=== PATIENT | male | born 1970 | race Hispanic/Latino ===

== ENCOUNTER 2022-03-09 00:31 | Emergency (ER) | payer OTHER ==
--- OUTSIDE RECORDS SUMMARY | 2022-03-09 00:45 | XMS REPORT | Continuity of Care Document ---
:1970 Author Organization [facility] t Address [address] [place] [address] Care Team Providers Name Role Phone PCP, DOES NOT HAVE A Primary Care Physician Unavailable ALLEN Attending Clinician Unavailable Allen DO Attending Clinician Jerson FAIR, S Attending Clinician ALLEN Admitting Clinician Unavailable Payers Payer Name Policy Type Policy Number Effective Date Expiration Date [facility] MEDICAID ALIEN PENDING 2022 PENDING 00:00:00 Problems Condition Condition Condition Status Onset Resolution Last Treating Co mments Source Name Details Category Date Date Treatment Clinician Date No known No known Disease Unive rs active active ity of problems problems [facility] Allergies, Adverse Reactions, Alerts Allergy Allergy Status Severity Reaction(s) Onset Inactive Treating Comm ents Source Name Type Date Date Clinician Penicill Propensi Active Other - See Reports Univers ins ty to comments 2-25 that it ity of adverse 00:00: makes him [place] reaction 00 go Medical unconscio [facility], and white comes out of his mouth per patient. PENICILL Drug Active Other-Cmnt Univ ers INS Class 2-25 ity of 00:00: [address] NO KNOWN Drug Active Univers ALLERGIE Class ity of S [facility] Social History Social Habit Start Date Stop Date Quantity Comments Source Exposure to Not sure [facility] SARS-CoV-2 (event) Medica l Branch Sex Assigned At [birth year] [facility] [place] [facility] Medical Branch Smoking Status Start Date Stop Date Source Unknown if ever smoked Universit y [facility] Medications Ordered Filled Start Stop Current Ordering Indication Dosage Frequency Signature Comments Components Source Medication Medication Date Date Medication? Clinician (SIG) Name Name iopamidol 2021- No [id number] 100mL 100 mL, Univers (ISOVUE 02-2225 Intravenou ity o f 370-500 mL) 11:45: 10:35 s, ONCE, 1 [place] injection 00 :00 dose, On Medica l 100 mL Fri Branch 02/22/22 at 0645, Routine morpHINE 2021- No 4mg 4 mg, Slow Un maycol injection 4 02-2225 IV Push, ity of mg 09:30: 08:38 ONCE, 1 [place] 00 :00 dose, On Medical Fri Branch 02/22/22 at 0430, STAT ondansetron 2021- No 4mg 4 mg, Slow Univers (ZOFRAN 02-22 IV Push, ity of (PF)) 09:30: 08:38 ONCE, 1 [place] injection 4 00 :00 dose, On Medi rashida mg Fri Branch 02/22/22 at 0430, Routine NaCl 0.9% 2021- No 1000mL at 999 Uni vers (NS) bolus 02-22-25 mL/hr, ity of infusion 08:30: 11:16 1,000 mL, Natalio as 1,000 mL 00 :00 IV Medical Infusion, Branch ONCE, 1 dose, On Fri02/22/22 at 0330, STAT ondansetron 0 Yes [id number] 4mg Take 1 Univers 4 mg 3-25 tablet by ity of disintegrat 00:00: mouth [place] ing tablet 00 every 8 Medica l (eight) Branch hours as needed for Nausea and Vomiting (N/V). dicyclomine Yes [id number] 20mg Take 1 Univers 20 mg 3-25 tablet by ity of tablet 00:00: mouth 4 [place] 00 (four) Medical times Branch daily. No known No Univers medications [facility] Vital Signs Vital Name Observation Time Observation Value Comments Source Systolic blood 2022-02-22 11:17:00 131 mm[Hg] Univer sity of pressure [facility] Diastolic blood 2022-02-22 11:17:00 90 mm[Hg] Unive rsity of pressure [place] [facility] Heart rate 2022-02-22 11:17:00 62 /min Universi ty [facility] [place] [facility] Respiratory rate 2022-02-22 11:17:00 17 /min Univ ersity of [place] [facility] Oxygen saturation in 2022-02-22 11:17:00 96 /min University of Arterial blood by [facility] Pulse oximetry Branch Body temperature 2022-02-22 08:23:00 36.5 Kim [facility] [place] [facility] ersity of [place] [facility] Body height 2022-02-22 08:23:00 170.2 cm [facility]i ty [facility] [place] [facility] Body weight 2022-02-22 08:23:00 90.719 kg Universi ty of [facility] Branch BMI 2022-02-22 08:23:00 31.32 kg/m2 [facility] [place] [facility] Systolic blood 2021-01-25 17:01:00 137 mm[Hg] Univer sity of [facility] Diastolic blood 2021-01-25 17:01:00 96 mm[Hg] Unive rsity of pressure [place] [facility] Heart rate 2021-01-25 17:01:00 75 /min [facility]i ty [facility] [place] [facility] Respiratory rate 2021-01-25 17:01:00 10 /min [facility] [place] [facility] ersity of [facility] Branch Oxygen saturation in 2021-01-25 17:01:00 99 /min University of Arterial blood by [facility] Pulse oximetry Branch Body temperature 2021-01-25 15:52:00 37.06 Kim [facility] [place] [facility]ity [facility] [place] [facility] Body height 2021-01-25 15:52:00 167.6 cm [facility] [place] [facility] Body weight 2021-01-25 15:52:00 89.812 kg [facility] [place] [facility] BMI 2021-01-25 15:52:00 31.96 [facility] Procedures Procedure Date / Time Performed Performing Clinician Sourkellee e CT ABDOMEN PELVIS W 2022-02-22 10:43:32 Harvinder Allen [facility] ty [facility] CONTRAST [facility] Branch LIPASE 2022-02-22 08:32:00 Harvinder Allen o f [facility] COMP. METABOLIC PANEL 2022-02-22 08:32:00 Harvinder Allen [facility] ([id number]) Medical Branch LIPID PANEL 2022-02-22 08:32:00 Allen, [facility] ([id number])(TOTAL Medical Branch CHOLESTEROL, TRIGLYCERIDES, HDL) CBC WITH DIFF 2022-02-22 08:32:00 Allen, [facility] URINALYSIS 2022-02-22 08:32:00 Allen, [facility] NOTICE OF PRIVACY 2022-02-22 08:05:58 Doctor Unassigned, No [facility] PRACTICES Name Medical Branch CONSENT/REFUSAL FOR 2022-02-22 08:05:35 Doctor Unassigned, No [facility] DIAGNOSIS AND Name Medical Branch TREATMENT CT HEAD WO CONTRAST 2021-01-25 16:44:51 [facility] Start End Encounter Admission Attending Care Care Encounter Source Date/Time Date/Time Type Type Clinicians Facility Department ID 2022-02-22 2022-02-22 Emergency X [facility] ERT [id number] Univers 03:12:00 06:20:00 HARVINDER jael [facility] 2022-02-22 2022-02-22 Emergency [facility] [id number] Univers 03:12:00 06:20:00 Harvinder HERNANDEZ [id number] i ty of [place] [id number] [facility] [id number] [address] 2021-01-25 2021-01-25 Emergency Jerson [facility] [id number] Univers 09:54:00 11:13:00 Cristina Hernandez [id number] i ty of [place] [id number] [facility] [id number] [address] 2021-01-25 2021-01-25 Emergency X [facility] ERT [id number] Univers 09:41:00 09:41:00 [facility] Results Test Description Test Time Test Comments Results Result Comments Source LIPID PANEL ([id number])(TOTAL CHOLESTEROL, TRIGLYCERIDES, HDL) 09:01:57 Test Item Value Reference Range Interpretation Comme nts CHOL (test code = 4871461019) 211 mg/dL 120-200 H HDL (test code = 5796276957) 58 mg/dL >40 HDLC RATIO (test code = See_Comment [Au tomated message] The 5303670653) system which [employer] nerated this result transmit steve reference range: <=5.0. T he reference range was not u sed to interpret this result as normal/abnormal . TRIG (test code = 8913880564) 149 mg/dL 30-170 LDL CHOL (test code = 46069-2) 123 mg/dL See_Comment [Automated message] The system which [employer] nerated this result transmit steve reference range: <=160. T he reference range was not u sed to interpret this result as normal/abnormal . VLDL (test code = 3676870006) 30 mg/dL 5-60 Lab Interpretation (test code = Abnormal 26149-3) [facility] [place]. METABOLIC PANEL ([id number])2022-02-22 09:01:36 Test Item Value Reference Range Interpretation Comments NA (test code = 140 mmol/L 135-145 7008184828) K (test code = 4.4 mmol/L 3.5-5.0 8951392484) CL (test code = 102 mmol/L 98-108 1751726213) CO2 TOTAL (test code 27 mmol/L 23-31 = 0591257449) AGAP (test code = 2-16 5863332727) BUN (test code = 19 mg/dL 7-23 9962588728) GLUCOSE (test code = 101 mg/dL 70-110 2645657842) CREATININE (test code 0.94 mg/dL 0.60-1.25 = 0684001878) TOTAL BILI (test code 0.5 mg/dL 0.1-1.1 = 9483092246) CALCIUM (test code = 8.9 mg/dL 8.6-10.6 5923167674) T PROTEIN (test code 7.4 g/dL 6.3-8.2 = 5183780274) ALBUMIN (test code = 4.3 g/dL 3.5-5.0 8727862939) ALK PHOS (test code = 76 U/L 34-122 7839805596) ALTv (test code = 42 U/L 5-50 1742-6) AST(SGOT) (test code 36 U/L 13-40 = 0560981724) eGFR (test code = mL/min/1.73m2 4606366934) AKASH (test code = AKASH) Association of Glomerular Filtration Rate (GFR) and Staging of Kidney Disease* + + +- +| GFR (mL/min/1.73 m2) ?| With Kidney Damage ?| ?Without Kidney Damage+ ------+ ----+ ------+| ?>90 ?| ?Stage one ?| ? Normal ?+ -+ + -+| ?60-89 ?| ?Stage two ?| ? Decreased GFR ? + + +- +| ?30-59 ?| ?Stage three ?| ? Stage three ? + + +- +| ?15-29 ?| ?Stage four ? | ? Stage four ?+ -+ + -+| ?<15 (or dialysis) ? ?| ?Stage five ? | ? Stage five ?+ -+ + -+ *Each stage assumes the associated GFR level has been in effect for at least three months. ?Stages 1 to 5, with or without kidney disease, indicate chronic kidney disease. Notes: Determination of stages one and two (with eGFR >59mL/min/1.73 m2) requires estimation of kidney damage for at least three months as defined by structural or functional abnormalities of the kidney, manifested by either:Pathological abnormalities or Markers of kidney damage (including abnormalities in the composition of the blood or urine or abnormalities in imaging tests). [facility] 09:01:21 Test Item Value Reference Range Interpretation Comments LIPASE (test code = 1449781940) 119 U/L 0-220 Lab Interpretation (test code = Normal 64537-8) [facility] WITH [id number] 08:47:37 Test Item Value Reference Range Interpretation Comments WBC (test code = See_Comment [Automated 6693-2) message] The sy stem which generated this result transmitted reference range : 4.20 - 10.70 10*3/?L. The reference range was not used to interpret this result as normal/abnormal . RBC (test code = See_Comment [Automated 789-8) message] The sy stem which generated this result transmitted reference range : 4.26 - 5.52 10*6/?L. The reference range was not used to interpret this result as normal/abnormal . HGB (test code = 15.3 g/dL 12.2-16.4 718-7) HCT (test code = 47.6 % 38.4-49.3 4544-3) MCV (test code = 89.5 fL 81.7-95.6 787-2) MCH (test code = 28.8 pg 26.1-32.7 785-6) MCHC (test code = 32.1 g/dL 31.2-35.0 786-4) RDW-SD (test code = 40.9 fL 38.5-51.6 54048-7) RDW-CV (test code = 12.4 % 12.1-15.4 788-0) PLT (test code = See_Comment [Automated 777-3) message] The sy stem which generated this result transmitted reference range : 150 - 328 10*3/ ?L. The reference r giovani was not used to interpret this result as normal/abnormal . MPV (test code = 11.2 fL 9.8-13.0 56978-6) NRBC/100 WBC (test See_Comment [Automat ed code = 3562954069) message] The system which generated this result transmitted reference range : 0.0 - 10.0 /100 WBCs. The refer ence range was not u sed to interpret th is result as normal/abnormal . NRBC x10^3 (test code <0.01 See_Comment [Auto mated = 9386710660) message] The s ystem which generated this result transmitted reference range : 10*3/?L. The reference range was not used to interpret this result as normal/abnormal . GRAN MAT (NEUT) % 52.6 % (test code = 770-8) IMM GRAN % (test code 0.30 % = 0419627268) LYMPH % (test code = 35.3 % 736-9) MONO % (test code = 9.3 % 5905-5) EOS % (test code = 2.0 % 713-8) BASO % (test code = 0.5 % 706-2) GRAN MAT x10^3(ANC) 4.87 10*3/uL 1.99-6.95 (test code = 7610562866) IMM GRAN x10^3 (test 0.03 10*3/uL 0.00-0.06 code = 8735515360) LYMPH x10^3 (test code 3.28 10*3/uL 1.09-3.23 H = 731-0) MONO x10^3 (test code 0.86 10*3/uL 0.36-1.02 = 742-7) EOS x10^3 (test code = 0.19 10*3/uL 0.06-0.53 711-2) BASO x10^3 (test code 0.05 10*3/uL 0.01-0.09 = 704-7) Lab Interpretation Abnormal (test code = 99094-4) [facility] WO [id number] 16:49:59No acute findings. HISTORY:Head trauma, focal neuro findings (Age 19-64y) TECHNIQUE: Noncontrast head CT was performed. COMPARISON:None. FINDINGS: The ventricles and sulci are appropriate for patient's age. There is no midline shift. The basal cisterns are preserved. No largevascular territory infarction, intracranial hemorrhage or mass effect isseen. The extracranial tissues demonstrate no acute findings. [facility], Radiant Results Inft User - 01/25/2021 10:51 AM CSTHISTORY:Head trauma, focal neuro findings (Age 19-64y) TECHNIQUE: Noncontrast head CT was performed.COMPARISON:None.FINDINGS:The ventricles and sulci are appropriate for patient's age.There is no midline shift. The basal cisterns are preserved. No largevascular territory infarction, intracranial hemorrhage or mass effect isseen.The extracranial tissues demonstrate no acute findings.IMPRESSIONNo acute findings.[facility]"
[2022-03-09] MEDS ORDERED: MORPHINE 4 MG/ML SYR ONE (01:08)
[2022-03-09] MEDS ORDERED: ONDANSETRON 4 MG/2 ML VIAL ONE (01:09)
[2022-03-09 01:42] LABS: Absolute Lymphocytes (CBC) 2.8 K/uL (0.7-4.9); Hematocrit 44.9 % (39.6-49.0); Lymphocytes % 34.5 % (15.3-44.8); MPV 9.5 fL (7.6-11.3); RBC Red Blood Cell Count 5.13 M/uL (4.33-5.43)
[2022-03-09 01:51] LABS: Bilirubin Total 0.3 mg/dL (0.2-1.0); Protein, Total 7.7 g/dL (6.4-8.2)
--- NOTE | 2022-03-09 03:22 | ER ---
Nurse's Notes [facility] Name: Anton Davis Age: 51 yrs Sex: Male : 1970 Arrival Date: 03/09/2022 Time: 00:36 Bed 6 Private MD: Diagnosis: Other cholelithiasis without obstruction;Upper abdominal pain, unspecified Presentation: 03/09 00:47 Chief complaint: Patient's son or daughter states: pt was seen at [facility] 2 weeks prior, as6 was told his gallbladder needed to be removed, today pain has increased, pt c/o RUQ pain, nausea. Coronavirus screen: At this time, the client does not indicate any symptoms associated with coronavirus-19. Ebola Screen: No symptoms or risks identified at this time. Initial Sepsis Screen: Does the patient meet any 2 criteria? No. Patient's initial sepsis screen is negative. Does the patient have a suspected source of infection? No. Patient's initial sepsis screen is negative. Risk Assessment: Do you want to hurt yourself or someone else? Patient reports no desire to harm self or others. Onset of symptoms is unknown. 00:47 Method Of Arrival: Ambulatory as6 00:47 Acuity: KAYLA 3 as6 Historical: - Allergies: 00:52 PENICILLINS; as6 - Home Meds: 00:52 None [Active]; as6 - PMHx: 00:52 None; as6 - PSHx: 00:52 hernia; as6 - Immunization history:: Client reports receiving the 2nd dose of the Covid vaccine, moderna. - Social history:: Smoking status: Patient denies any tobacco usage or history of. Screenin:56 Abuse screen: Denies threats or abuse. Denies injuries from another. Nutritional as6 screening: No deficits noted. Tuberculosis screening: No symptoms or risk factors identified. Fall Risk None identified. Assessment: 00:55 General: Appears in no apparent distress. uncomfortable, Behavior is calm, cooperative. as6 Pain: Complains of pain in right upper quadrant Quality of pain is described as sharp. Neuro: Level of Consciousness is awake, alert, obeys commands, Oriented to person, place, time, situation. Cardiovascular: Capillary refill < 3 seconds Patient's skin is warm and dry. Respiratory: Airway is patent Trachea midline Respiratory effort is even, unlabored, Respiratory pattern is regular, symmetrical. GI: Bowel sounds present X 4 quads. Abd is soft Abdomen is tender to palpation in right upper quadrant Reports nausea. Vital Signs: 00:47 BP 137 / 96; Pulse 61; Resp 18 S; Temp 97.8(O); Pulse Ox 98% on R/A; Weight 113.4 kg as6 (R); Height 5 ft. 7 in. (170.18 cm) (R); Pain 9/10; 01:00 BP 130 / 84; Pulse 59; Resp 18 S; Pulse Ox 98% on R/A; as6 02:00 BP 112 / 82; Pulse 55; Resp 20 S; Pulse Ox 98% on R/A; as6 03:30 BP 119 / 81; Pulse 57; Resp 20 S; Pulse Ox 97% on R/A; as6 00:47 Body Mass Index 39.16 (113.40 kg, 170.18 cm) as6 ED Course: 00:36 Patient arrived in ED. kz 00:40 Ashok Michel DO is Attending Physician. ms3 00:46 Deyvi Lugo, ROSA is Primary Nurse. as6 00:52 Triage completed. as6 00:54 Arm band placed on. as6 00:56 Placed in gown. Bed in low position. Call light in reach. Side rails up X 1. Pulse ox as6 on. NIBP on. 01:15 Inserted saline lock: 20 gauge in right antecubital area, using aseptic technique. wm Blood collected. 01:21 CBC with Diff Sent. as6 01:21 CMP Sent. as6 01:21 Lipase Sent. as6 02:22 CT Abd/Pelvis - IV Contrast Only In Process Unspecified. EDMS 03:22 Martin Lomas MD is Referral Physician. ms3 03:31 No provider procedures requiring assistance completed. IV discontinued, intact, as6 bleeding controlled, No redness/swelling at site. Pressure dressing applied. Administered Medications: 01:14 Drug: morphine 4 mg Route: IVP; Site: right antecubital; as6 03:31 Follow up: Response: No adverse reaction; RASS: Alert and Calm (0) as6 01:14 Drug: Zofran (Ondansetron) 4 mg Route: IVP; Site: right antecubital; as6 03:31 Follow up: Response: No adverse reaction as6 Outcome: 03:22 Discharge ordered by . ms3 03:31 Discharged to home ambulatory, with family. as6 03:31 Condition: stable 03:31 Discharge instructions given to patient, family, Instructed on discharge instructions, follow up and referral plans. Demonstrated understanding of instructions, follow-up care. 03:31 Patient left the ED. as6 Signatures: Dispatcher [employer] EDMS Ashok Michel DO DO ms3 Batsheva Steele Ashby, ROSA RN as6 Daya Stallworth
--- NOTE | 2022-03-09 03:22 | EDPHYS ---
Physician Documentation [facility] Name: Anton Davis Age: 51 yrs Sex: Male : 1970 Arrival Date: 03/09/2022 Time: 00:36 Bed 6 Private MD: ED Physician Ahsok Michel HPI: 03/09 01:37 This 51 yrs old Male presents to ER via Ambulatory with complaints of ms3 Abdominal Pain - Upper. 01:37 The patient presents with abdominal pain in the right upper quadrant. Onset: The ms3 symptoms/episode began/occurred acutely, 2 day(s) ago. The symptoms do not radiate. Associated signs and symptoms: Pertinent positives: nausea, Pertinent negatives: vomiting. The symptoms are described as sharp. Modifying factors: The symptoms are alleviated by nothing. Severity of pain: At its worst the pain was severe in the emergency department the pain is unchanged. 1-year-old male with no past medical history presents for right upper quadrant pain that has been ongoing for 2 days. Patient states the pain has become worse today and rates the pain a 10/10 describes pain as being sharp. Patient endorses nausea. Patient denies vomiting or diarrhea. Patient was seen 2 weeks ago at [facility] and told he had gallstones in his gallbladder. Historical: - Allergies: 00:52 PENICILLINS; as6 - Home Meds: 00:52 None [Active]; as6 - PMHx: 00:52 None; as6 - PSHx: 00:52 hernia; as6 - Immunization history:: Client reports receiving the 2nd dose of the Covid vaccine, moderna. - Social history:: Smoking status: Patient denies any tobacco usage or history of. ROS: 01:37 Constitutional: Negative for fever, and chills. ENT: Negative for injury, pain, and ms3 discharge, Neck: Negative for injury, pain, and swelling, Cardiovascular: Negative for chest pain, and palpitations. Respiratory: Negative for shortness of breath, cough, wheezing, and pleuritic chest pain, MS/Extremity: Negative for injury and deformity, Skin: Negative for injury, rash, and discoloration, Neuro: Negative for headache, weakness, numbness, tingling. 01:37 Abdomen/GI: Positive for abdominal pain, nausea. Exam: 01:37 Constitutional: This is a well developed, well nourished patient who is awake, alert, ms3 and in no acute distress. Head/Face: Normocephalic, atraumatic. Neck: Trachea midline, no cervical lymphadenopathy. Supple, full range of motion without nuchal rigidity, or vertebral point tenderness. No Meningismus. Chest/axilla: Normal chest wall appearance and motion. Nontender with no deformity. Cardiovascular: Regular rate and rhythm with a normal S1 and S2. No gallops, murmurs, or rubs. Normal PMI, no JVD. No pulse deficits. Respiratory: Lungs have equal breath sounds bilaterally, clear to auscultation and percussion. No rales, rhonchi or wheezes noted. No increased work of breathing, no retractions or nasal flaring. Skin: Warm, dry with normal turgor. Normal color with no rashes, no lesions, and no evidence of cellulitis. MS/ Extremity: Pulses equal, no cyanosis. Neurovascular intact. Full, normal range of motion. Psych: Awake, alert, with orientation to person, place and time. Behavior, mood, and affect are within normal limits. 01:37 Abdomen/GI: Inspection: abdomen appears normal, Bowel sounds: normal, Palpation: moderate abdominal tenderness, in the right upper quadrant. Vital Signs: 00:47 BP 137 / 96; Pulse 61; Resp 18 S; Temp 97.8(O); Pulse Ox 98% on R/A; Weight 113.4 kg as6 (R); Height 5 ft. 7 in. (170.18 cm) (R); Pain 9/10; 01:00 BP 130 / 84; Pulse 59; Resp 18 S; Pulse Ox 98% on R/A; as6 02:00 BP 112 / 82; Pulse 55; Resp 20 S; Pulse Ox 98% on R/A; as6 03:30 BP 119 / 81; Pulse 57; Resp 20 S; Pulse Ox 97% on R/A; as6 00:47 Body Mass Index 39.16 (113.40 kg, 170.18 cm) as6 MDM: 00:59 Patient medically screened. ms3 01:37 Differential diagnosis: cholecystitis, Cholelithiasis, gastritis. ms3 03:23 Data reviewed: vital signs, nurses notes, lab test result(s), radiologic studies, CT ms3 scan. Data interpreted: Pulse oximetry: on room air is 98 %. Interpretation: normal. Counseling: I had a detailed discussion with the patient and/or guardian regarding: the historical points, exam findings, and any diagnostic results supporting the discharge/admit diagnosis, lab results, radiology results, the need for outpatient follow up, to return to the emergency department if symptoms worsen or persist or if there are any questions or concerns that arise at home. ED course: Discussed labs, CT, physical exam findings with patient. Patient to follow-up with Dr. Lomas in 3 days. Patient understands and agrees with plan. All questions were answered. Return precautions discussed include worsening symptoms, or any other concerns. On reevaluation patient's pain resolved, patient alert and oriented x4, no apparent distress, nontoxic, ambulatory in the emergency department. 03/09 00:59 Order name: CBC with Diff; Complete Time: 02:14 ms3 03/09 00:59 Order name: CMP; Complete Time: 02:14 ms3 03/09 00:59 Order name: Lipase; Complete Time: 02:14 ms3 03/09 00:59 Order name: CT Abd/Pelvis - IV Contrast Only ms3 03/09 00:59 Order name: IV Saline Lock; Complete Time: 01:21 ms3 03/09 00:59 Order name: Labs collected and sent; Complete Time: 01:21 ms3 Administered Medications: 01:14 Drug: morphine 4 mg Route: IVP; Site: right antecubital; as6 03:31 Follow up: Response: No adverse reaction; RASS: Alert and Calm (0) as6 01:14 Drug: Zofran (Ondansetron) 4 mg Route: IVP; Site: right antecubital; as6 03:31 Follow up: Response: No adverse reaction as6 Disposition Summary: 03/09/22 03:22 Discharge Ordered Location: Home ms3 Problem: new ms3 Symptoms: are resolved ms3 Condition: Stable ms3 Diagnosis - Other cholelithiasis without obstruction ms3 - Upper abdominal pain, unspecified ms3 Followup: ms3 - With: Martin Lomas MD - When: 2 - 3 days - Reason: Recheck today's complaints Discharge Instructions: - Discharge Summary Sheet ms3 - Abdominal Pain, Adult ms3 - Cholelithiasis, Nmgo-gp-Lxar ms3 Forms: - Medication Reconciliation Form ms3 - Thank You Letter ms3 - Antibiotic Education ms3 - Prescription Opioid Use ms3 Signatures: Dispatcher [employer] EDAshok Eden DO DO ms3 Deyvi Lugo, RN RN as6
[2022-03-09 11:09] VITALS: TEMP 97.8
[2022-03-09 11:13] VITALS: BP 119/81; O2SAT 97
--- NOTE | 2022-03-11 13:08 | RAD REPORT ---
EXAM DESCRIPTION: CT - Abdomen Pelvis W Contrast - 03/09/2022 6:57 am COMPARISON: None CLINICAL HISTORY: Abdominal pain TECHNIQUE: Multiple helical axial images were obtained through the abdomen and pelvis using intraven ous contrast. Coronal and sagittal reformatted images were obtained. All CT scans at this facility use dose modulation, iterative reconstruction, and/or weight-based dosi ng when appropriate to reduce radiation dose to as low as reasonably achievable. FINDINGS: Lung bases: Linear areas of atelectasis in the lingula and right middle lobe noted. Liver: There is low-attenuation suggesting fatty changes. Gallbladder/biliary: A few stones in the gallbladder are present. No evidence of pericholecystic infl ammation. No significant biliary ductal dilatation. Pancreas: Unremarkable. No evidence of ductal enlargement. Spleen: Appears unremarkable. No splenomegaly. Adrenals: Unremarkable. Kidneys and ureters: No evidence of hydronephrosis. Normal enhancement. There a few cysts in the up per pole of the right kidney measuring up to 1.8 cm. There is a 3 mm nonspecific calcification along the largest right upper pole renal cyst. Bladder: Unremarkable. Pelvic organs: Unremarkable. Bowel: No evidence of bowel obstruction. No bowel wall thickening. Appendix is not visualized and a ppears to have been removed. Vasculature: Mild aortoiliac atherosclerosis is present. Peritoneum: No free air. No significant free fluid. Lymph nodes: Unremarkable. Soft tissues: There is cutaneous thickening at the umbilicus. Bones: Unremarkable. IMPRESSION: 1. No evidence for an acute process within the abdomen or pelvis. 2. Cholelithiasis. 3. Hepatic steatosis. 4. Nonspecific cutaneous thickening of the umbilicus, correlate clinically for cellulitis. Electronically signed by: River Moralez MD 03/09/2022 3:03 AM CDT Due to temporary technical issues with the PACS/Fluency reporting system, reports are being signed by the in house radiologist without review as a courtesy to ensure prompt reporting. The interpreting r adiologist is fully responsible for the content of the report.
== END 2022-03-09 03:31 | disposition home or self-care (01) ==
LOC: ER 00:31
DX: K80.80 Other cholelithiasis without obstruction (principal); Z88.0 Allergy status to penicillin
CPT/HCPCS: 85025; 36415; 83690; 80053; 74177; 96375; 96374; 99284; Q9967; J2405

== ENCOUNTER 2022-04-24 05:06 | Emergency (ER) | payer OTHER ==
--- OUTSIDE RECORDS SUMMARY | 2022-04-24 05:10 | XMS REPORT | Continuity of Care Document ---
:1970 Author Organization [facility] t Address [address] [place] [address] Care Team Providers Name Role Phone PCP, DOES NOT HAVE A Primary Care Physician Unavailable ALLEN Attending Clinician Unavailable Allen DO Attending Clinician Jerson FAIR, S Attending Clinician ALLEN Admitting Clinician Unavailable Payers Payer Name Policy Type Policy Number Effective Date Expiration Date [facility] MEDICAID ALIEN PENDING 2022 PENDING 00:00:00 Problems Condition Condition Condition Status Onset Resolution Last Treating Co mments Source Name Details Category Date Date Treatment Clinician Date No known No known Disease Unive rs active active ity of problems problems [facility] Allergies, Adverse Reactions, Alerts Allergy Allergy Status Severity Reaction(s) Onset Inactive Treating Comm ents Source Name Type Date Date Clinician Penicill Propensi Active Other - See Reports Univers ins ty to comments 2-25 that it ity of adverse 00:00: makes him [place] reaction 00 go Medical unconscio [facility], and white comes out of his mouth per patient. PENICILL Drug Active Other-Cmnt Univ ers INS Class 2-25 ity of 00:00: [address] NO KNOWN Drug Active Univers ALLERGIE Class ity of S [facility] Social History Social Habit Start Date Stop Date Quantity Comments Source Exposure to Not sure [facility] SARS-CoV-2 (event) Medica l Branch Sex Assigned At [birth year] [facility] [place] 00:[facility]:00 00:00:00 Medical Branch Smoking Status Start Date Stop Date Source Unknown if ever smoked [facility]it y [facility] Medications Ordered Filled Start Stop Current Ordering Indication Dosage Frequency Signature Comments Components Source Medication Medication Date Date Medication? Clinician (SIG) Name Name iopamidol 2021- No [id number] 100mL 100 mL, Univers (ISOVUE 02-2225 Intravenou [...] Fri02/22/22 at 0330, STAT ondansetron 0 Yes [id number] 4mg Take 1 Univers 4 mg 3-25 tablet by ity of disintegrat 00:00: mouth [place] ing tablet 00 every 8 Medica l (eight) Branch hours as needed for Nausea and Vomiting (N/V). dicyclomine Yes [id number] 20mg Take 1 Univers 20 mg 3-25 tablet by ity of tablet 00:00: mouth 4 [place] 00 (four) Medical times Branch daily. No known No Univers medications [facility] Vital Signs Vital Name Observation Time Observation Value Comments Source Systolic blood 2022-02-22 11:17:00 131 mm[Hg] Univer sity of pressure [facility] Diastolic blood 2022-02-22 11:17:00 90 mm[Hg] Unive rsity of pressure [place] [facility] Heart rate 2022-02-22 11:17:00 62 /min Universi ty of [place] [facility] Respiratory rate 2022-02-22 11:17:00 17 /min Univ ersity of [place] [facility] Oxygen saturation in 2022-02-22 11:17:00 96 /min University of Arterial blood by [facility] Pulse oximetry Branch Body temperature 2022-02-22 08:23:00 36.5 Kim [facility] [place] [facility] ersity of [place] [facility] Body height 2022-02-22 08:23:00 170.2 cm [facility]i ty [facility] [place] [facility] [place] Body weight 2022-02-22 08:23:00 90.719 kg Universi ty of [facility] Branch BMI 2022-02-22 08:23:00 31.32 kg/m2 [facility] [place] [facility] [place] Systolic blood 2021-01-25 17:01:00 137 mm[Hg] Univer sity of [facility] Diastolic blood 2021-01-25 17:01:00 96 mm[Hg] Unive rsity of pressure [place] [facility] Heart rate 2021-01-25 17:01:00 75 /min [facility]i ty [facility] [place] [facility] Respiratory rate 2021-01-25 17:01:00 10 /min [facility] [place] [facility] ersity of [facility] Branch Oxygen saturation in 2021-01-25 17:01:00 99 /min University of Arterial blood by [facility] Pulse oximetry Branch Body temperature 2021-01-25 15:52:00 37.06 Kim [facility] [place] [facility] ersity of [place] [facility] [place] Body height 2021-01-25 15:52:00 167.6 cm [facility] [place] [facility] [place] Body weight 2021-01-25 15:52:00 89.812 kg [facility] [place] [facility] [place] BMI 2021-01-25 15:52:00 31.96 kg/m2 [facility] Procedures Procedure Date / Time Performed Performing Clinician Sourkellee e CT ABDOMEN PELVIS W 2022-02-22 10:43:32 Harvinder Allen [facility] ty [facility] CONTRAST [facility] Branch LIPASE 2022-02-22 08:32:00 Harvinder Allen o f [facility] COMP. METABOLIC PANEL 2022-02-22 08:32:00 Harvinder Allen [facility] ([id number]) Medical Branch LIPID PANEL 2022-02-22 08:32:00 Allen, [facility] ([id number])(TOTAL Medical Branch CHOLESTEROL, TRIGLYCERIDES, HDL) CBC WITH DIFF 2022-02-22 08:32:00 Allen, [facility] URINALYSIS 2022-02-22 08:32:00 Allen, [facility] NOTICE OF PRIVACY 2022-02-22 08:05:58 Doctor Unassigned, No [facility] PRACTICES Name Medical Branch CONSENT/REFUSAL FOR 2022-02-22 08:05:35 Doctor Unassigned, No [facility] DIAGNOSIS AND Name Medical Branch TREATMENT CT HEAD WO CONTRAST 2021-01-25 16:44:51 [facility] Start End Encounter Admission Attending Care Care Encounter Source Date/Time Date/Time Type Type Clinicians Facility Department ID 2022-02-22 2022-02-22 Emergency X [facility] ERT [id number] Univers 03:12:00 06:20:00 HARVINDER jael [facility] 2022-02-22 2022-02-22 Emergency [facility] [id number] Univers 03:12:00 06:20:00 Harvinder HERNANDEZ [id number] i ty of [place] [id number] [facility] [id number] [address] 2021-01-25 2021-01-25 Emergency Jerson [facility] [id number] Univers 09:54:00 11:13:00 Cristina Hernandez [id number] i ty of [place] [id number] [facility] [id number] [address] 2021-01-25 2021-01-25 Emergency X [facility] ERT [id number] Univers 09:41:00 09:41:00 [facility] Results Test Description Test Time Test Comments Results Result Comments Source LIPID PANEL ([id number])(TOTAL CHOLESTEROL, TRIGLYCERIDES, HDL) 09:01:57 Test Item Value Reference Range Interpretation Comme nts CHOL (test code = 4447652452) 211 mg/dL 120-200 H HDL (test code = 4351908164) 58 mg/dL >40 HDLC RATIO (test code = See_Comment [Au tomated message] The 9960729995) system which Mant[employer] nerated this result transmit steve reference range: <=5.0. T he reference range was not u sed to interpret this result as normal/abnormal . TRIG (test code = 1636329930) 149 mg/dL 30-170 LDL CHOL (test code = 04627-1) 123 mg/dL See_Comment [Automated message] The system which Mant[employer] nerated this result transmit steve reference range: <=160. T he reference range was not u sed to interpret this result as normal/abnormal . VLDL (test code = 8371174280) 30 mg/dL 5-60 Lab Interpretation (test code = Abnormal 82028-9) [facility]. METABOLIC PANEL (01772)2022-02-22 09:01:36 Test Item Value Reference Range Interpretation Comments NA (test code = 140 mmol/L 135-145 2581289555) K (test code = 4.4 mmol/L 3.5-5.0 8118276534) CL (test code = 102 mmol/L 98-108 7408491086) CO2 TOTAL (test code 27 mmol/L 23-31 = 0845143457) AGAP (test code = 2-16 2608199728) BUN (test code = 19 mg/dL 7-23 0484065172) GLUCOSE (test code = 101 mg/dL 70-110 3168289609) CREATININE (test code 0.94 mg/dL 0.60-1.25 = 5283370076) TOTAL BILI (test code 0.5 mg/dL 0.1-1.1 = 8133338623) CALCIUM (test code = 8.9 mg/dL 8.6-10.6 2899300334) T PROTEIN (test code 7.4 g/dL 6.3-8.2 = 8778551715) ALBUMIN (test code = 4.3 g/dL 3.5-5.0 5106236750) ALK PHOS (test code = 76 U/L 34-122 1232938686) ALTv (test code = 42 U/L 5-50 1742-6) AST(SGOT) (test code 36 U/L 13-40 = 8064319819) eGFR (test code = mL/min/1.73m2 9803526565) AKASH (test code = AKASH) Association of [...] or urine or abnormalities in imaging tests). [facility] Test Item Value Reference Range Interpretation Comments LIPASE (test code = 4853739068) 119 U/L 0-220 Lab Interpretation (test code = Normal 57527-6) [facility] [id number] 08:47:37 Test Item Value Reference Range Interpretation Comments WBC (test code = See_Comment [Automated 7268-2) message] The sy stem which generated this [...] RDW-SD (test code = 40.9 fL 38.5-51.6 43127-8) RDW-CV (test code = 12.4 % 12.1-15.4 788-0) PLT (test code = See_Comment [Automated 777-3) message] The sy stem which generated this result transmitted reference range : 150 - 328 10*3/ ?L. The reference r giovani was not used to interpret this result as normal/abnormal . MPV (test code = 11.2 fL 9.8-13.0 36671-9) NRBC/100 WBC (test See_Comment [Automat ed code = 1335355372) message] The system which generated this result transmitted reference range : 0.0 - 10.0 /100 WBCs. The refer ence range was not u sed to interpret th is result as normal/abnormal . NRBC x10^3 (test code <0.01 See_Comment [Auto mated = 0218383090) message] The s ystem which generated this result transmitted reference range : 10*3/?L. The reference range was not used to interpret this result as normal/abnormal . GRAN MAT (NEUT) % 52.6 % (test code = 770-8) IMM GRAN % (test code 0.30 % = 7613892393) LYMPH % (test code = 35.3 % 736-9) MONO % (test code = 9.3 % 5905-5) EOS % (test code = 2.0 % 713-8) BASO % (test code = 0.5 % 706-2) GRAN MAT x10^3(ANC) 4.87 10*3/uL 1.99-6.95 (test code = 8854889910) IMM GRAN x10^3 (test 0.03 10*3/uL 0.00-0.06 code = 8595756109) LYMPH x10^3 (test code 3.28 10*3/uL 1.09-3.23 H = 731-0) MONO x10^3 (test code 0.86 10*3/uL 0.36-1.02 = 742-7) EOS x10^3 (test code = 0.19 10*3/uL 0.06-0.53 711-2) BASO x10^3 (test code 0.05 10*3/uL 0.01-0.09 = 704-7) Lab Interpretation Abnormal (test code = 91207-5) [facility] [id number] 16:49:59No acute findings. HISTORY:Head trauma, focal neuro findings (Age 19-64y) TECHNIQUE: Noncontrast head CT was performed. COMPARISON:None. FINDINGS: The ventricles and sulci are appropriate for patient's age. There is no midline shift. The basal cisterns are preserved. No largevascular territory infarction, intracranial hemorrhage or mass effect isseen. The extracranial tissues demonstrate no acute findings. [facility], Radiant Results Inft User - 01/25/2021 10:51 AM CSTHISTORY:Head trauma, focal neuro findings (Age 19-64y) TECHNIQUE: Noncontrast head CT was performed.COMPARISON:None.FINDINGS:The ventricles and sulci are appropriate for patient's age.There is no midline shift. The basal cisterns are preserved. No largevascular territory infarction, intracranial hemorrhage or mass effect isseen.The extracranial tissues demonstrate no acute findings.IMPRESSIONNo acute findings.[facility]"
[2022-04-24 06:26] LABS: Absolute Lymphocytes (CBC) 2.1 K/uL (0.7-4.9); Hematocrit 44.4 % (39.6-49.0); Lymphocytes % 33.5 % (15.3-44.8); MPV 9.1 fL (7.6-11.3); RBC Red Blood Cell Count 5.11 M/uL (4.33-5.43)
[2022-04-24 06:50] LABS: Albumin 3.7 g/dL (3.4-5.0); Bilirubin Total 0.4 mg/dL (0.2-1.0); Potassium 4.2 mmol/L (3.5-5.1); Protein, Total 7.1 g/dL (6.4-8.2)
[2022-04-24] MEDS ORDERED: MORPHINE 4 MG/ML SYR ONE (08:11)
[2022-04-24] MEDS ORDERED: ONDANSETRON 4 MG/2 ML VIAL ONE (08:11)
--- NOTE | 2022-04-24 08:32 | RAD REPORT ---
EXAM DESCRIPTION: US - Abdomen Exam Limited - 04/24/2022 8:25 am CLINICAL HISTORY: ABD PAIN COMPARISON: Abdomen Pelvis W Contrast dated 03/09/2022 FINDINGS: Cholelithiasis noted. No gallbladder wall thickening. No sonographic Rivera sign was repor steve. No pericholecystic fluid. The common bile duct measures 4 millimeters and is normal. IMPRESSION: Cholelithiasis without sonographic evidence of acute cholecystitis. No biliary ductal di latation.
--- NOTE | 2022-04-24 08:59 | RAD REPORT ---
EXAM DESCRIPTION: CTAbdomen Pelvis W Contrast - 04/24/2022 8:33 am CLINICAL HISTORY: Abdominal pain, acute, nonlocalized COMPARISON: Abdomen Pelvis W Contrast dated 03/09/2022 TECHNIQUE: CT of the abdomen and pelvis was performed. All CT scans are performed using dose optimization technique as appropriate and may include automated exposure control or mA/KV adjustment according to patient size. FINDINGS: Lower chest: No acute abnormality. Liver: Hepatic steatosis Biliary: Cholelithiasis. Stomach: No significant focal abnormality. Duodenum: No significant focal abnormality. Pancreas: No significant abnormality. Spleen: No significant abnormality. Adrenal: No suspicious lesions. Kidney/ureter: No hydronephrosis. No renal calculi. Too small to characterize and/or benign appearing renal lesions are noted. Retroperitoneum: No retroperitoneal adenopathy. Vascular: No aneurysm. Bowel: No significant focal abnormality. Appendectomy. Peritoneum: No ascites or free air. Bladder: Grossly unremarkable. Reproductive: No adnexal masses. Bones: No acute fracture. Other: n/a IMPRESSION: No acute intra-abdominal or pelvic finding. Cholelithiasis without CT evidence of acute cholecystitis.
[2022-04-24] MEDS ORDERED: KETOROLAC 30 MG/ML INJ ONE (09:24)
[2022-04-24] MEDS ORDERED: DICYCLOMINE HCL 10 MG CAP ONE (09:24)
--- NOTE | 2022-04-24 10:39 | EDPHYS ---
Physician Documentation [facility] Name: Anton Davis Age: 51 yrs Sex: Male : 1970 Arrival Date: 04/24/2022 Time: 05:08 Bed 19 Private MD: ED Physician Carlo Stevens HPI: 04/24 09:18 This 51 yrs old Male presents to ER via Ambulatory with complaints of jmm Abdominal Pain. 09:18 The patient presents with abdominal pain in the epigastric area. Onset: The jmm symptoms/episode began/occurred gradually, 1 day(s) ago. The symptoms do not radiate. Associated signs and symptoms: Pertinent positives: nausea and vomiting, diarrhea. The symptoms are described as achy, crampy, dull. Modifying factors: The symptoms are alleviated by nothing, the symptoms are aggravated by food. The patient has experienced a previous episode. Historical: - Allergies: 05:53 PENICILLINS; adrián - PSHx: 05:53 hernia; adrián - Immunization history:: Client reports receiving the 2nd dose of the Covid vaccine. - Social history:: Smoking status: Patient denies any tobacco usage or history of. Patient/guardian denies using alcohol. ROS: 09:18 Constitutional: Negative for fever, chills, and weight loss, Cardiovascular: Negative jmm for chest pain, palpitations, and edema, Respiratory: Negative for shortness of breath, cough, wheezing, and pleuritic chest pain. 09:18 Abdomen/GI: Positive for abdominal pain, nausea and vomiting. 09:18 All other systems are negative. Exam: 09:18 Constitutional: This is a well developed, well nourished patient who is awake, alert, jmm and in no acute distress. Head/Face: atraumatic. Eyes: EOMI, no conjunctival erythema appreciated ENT: Moist Mucus Membranes Neck: Trachea midline, Supple Chest/axilla: Normal chest wall appearance and motion. Cardiovascular: Regular rate and rhythm. No edema appreciated Respiratory: Normal respirations, no respiratory distress appreciated 09:18 Back: Normal ROM Skin: General appearance color normal MS/ Extremity: Moves all extremities, no obvious deformities appreciated, no edema noted to the lower extremities Neuro: Awake and alert Psych: Behavior is normal, Mood is normal, Patient is cooperative and pleasant 09:18 Abdomen/GI: Inspection: abdomen appears normal, Bowel sounds: normal, Palpation: soft, mild abdominal tenderness, in the epigastric area, right upper quadrant and left upper quadrant. Vital Signs: 05:50 BP 124 / 76; Pulse 57; Resp 18; Temp 98.2; Pulse Ox 100% on R/A; adrián 05:56 BP 124 / 81; Pulse 62; Resp 18; Temp 98.2; Pulse Ox 100% on R/A; adrián 07:54 BP 121 / 64; Pulse 62; Resp 16; Pulse Ox 94% on R/A; adrián MDM: 08:05 Patient medically screened. [facility] 10:38 Data reviewed: vital signs, nurses notes. Counseling: I had a detailed discussion with radha the patient and/or guardian regarding: the historical points, exam findings, and any diagnostic results supporting the discharge/admit diagnosis, lab results, radiology results, the need for outpatient follow up, to return to the emergency department if symptoms worsen or persist or if there are any questions or concerns that arise at home. ED course: Patient is alert nontoxic in appearance NAD. Patient states feeling much better. Patient advised to follow general surgery/GI and otherwise given strict return precautions. Patient understood and agrees plan of care. 04/24 05:51 Order name: CBC with Diff; Complete Time: 08:08 [facility] 04/24 05:51 Order name: CMP; Complete Time: 08:08 [facility] 04/24 05:51 Order name: Lipase; Complete Time: 08:08 [facility] 04/24 08:04 Order name: US Abdomen Limited; Complete Time: 08:35 [facility] 04/24 08:04 Order name: CT Abd/Pelvis - IV Contrast Only; Complete Time: 09:04 [facility] 04/24 05:51 Order name: IV Saline Lock; Complete Time: 06:12 [facility] 04/24 05:51 Order name: Labs collected and sent; Complete Time: 06:12 kdr Administered Medications: 08:08 Drug: morphine 4 mg Route: IVP; Site: left antecubital; aguilar 08:09 Follow up: Response: No adverse reaction aguilar 08:09 CANCELLED (Duplicate Order): Ondansetron 4 mg PO once aguilar 08:09 Drug: Zofran (Ondansetron) 4 mg Route: IVP; Site: right antecubital; aguilar 08:09 Follow up: Response: No adverse reaction aguilar 09:34 Drug: Ketorolac 30 mg Route: IVP; Site: right antecubital; aguilar 09:35 Follow up: Response: No adverse reaction aguilar 09:35 Drug: Bentyl (dicyclomine) 20 mg Route: PO; aguilar 09:35 Follow up: Response: No adverse reaction aguilar Disposition: 04/25 03:33 Co-signature as Attending Physician, Carlo Stevens MD I agree with the assessment and kdr plan of care. Disposition Summary: 04/24/22 10:39 Discharge Ordered Location: Home jm Condition: Stable jmm Diagnosis - Abdominal pain, unspecified jmm - Other cholelithiasis without obstruction jmm - Vomiting jmm - Diarrhea, unspecified jmm Followup: m - With: Private Physician - When: 2 - 3 days - Reason: Recheck today's complaints, Continuance of care, Re-evaluation by your physician Followup: m - With: Tyrell Liriano MD - When: 2 - 3 days - Reason: Recheck today's complaints, Continuance of care, Re-evaluation by your physician Followup: jmm - With: Jose Ware MD - When: 2 - 3 days - Reason: Recheck today's complaints, Continuance of care, Re-evaluation by your physician Discharge Instructions: - Discharge Summary Sheet jm - Abdominal Pain, Adult jmm - Food Choices to Help Relieve Diarrhea, Adult jm - Cholelithiasis [facility] Forms: - Medication Reconciliation Form [facility] - Thank You Letter [facility] - Antibiotic Education [facility] - Prescription Opioid Use [facility] Prescriptions: - ondansetron 4 mg Oral tablet,disintegrating - take 1 tablet by ORAL route every 4-6 hours; 30 tablet; Refills: 0, Product [facility] Selection Permitted - Pepcid 20 mg Oral Tablet - take 1 tablet by ORAL route every 12 hours for 10 days; 20 tablet; Refills: 0, [facility] Product Selection Permitted - dicyclomine 20 mg Oral Tablet - take 1 tablet by ORAL route 4 times per day; 30 tablet; Refills: 0, Product [facility] Selection Permitted - Diclofenac Sodium 75 mg Oral Tablet Sustained Release - take 1 tablet by ORAL route 2 times per day; 30 tablet; Refills: 0, Product [facility] Selection Permitted Signatures: Dispatcher [employer] EDMS Rittger, Carlo, Christopher Justin MD, PA PA jmm O'Farrell, Brenda, RN RN Shilpa Silva RN RN aguilar Corrections: (The following items were deleted from the chart) 04/24 08: 08:04 Ondansetron 4 mg PO once ordered. kdr aguilar 08:08 Ondansetron 4 mg PO once given. aguilar aguilar 08:09 Ondansetron 4 mg PO once ordered. aguilar aguilar
--- NOTE | 2022-04-24 10:39 | ER ---
Nurse's Notes [facility] Name: Anton Davis Age: 51 yrs Sex: Male : 1970 Arrival Date: 04/24/2022 Time: 05:08 Bed 19 Private MD: Diagnosis: Abdominal pain, unspecified;Other cholelithiasis without obstruction;Vomiting;Diarrhea, unspecified Presentation: 04/24 05:50 Chief complaint: Patient states: vomiting and diarrhea x 1 day. Coronavirus screen: adrián Vaccine status: Patient reports receiving the 2nd dose of the covid vaccine. Ebola Screen: Patient negative for fever greater than or equal to 101.5 degrees Fahrenheit, and additional compatible Ebola Virus Disease symptoms Patient denies exposure to infectious person. Patient denies travel to an Ebola-affected area in the 21 days before illness onset. Initial Sepsis Screen: Does the patient meet any 2 criteria? No. Patient's initial sepsis screen is negative. Does the patient have a suspected source of infection? No. Patient's initial sepsis screen is negative. Risk Assessment: Do you want to hurt yourself or someone else? Patient reports no desire to harm self or others. Onset of symptoms was April 23, 2022. 05:50 Method Of Arrival: Ambulatory adrián 05:50 Acuity: KAYLA 3 adrián Triage Assessment: 05:53 General: Appears uncomfortable, Behavior is calm, cooperative, [place] speaking with adrián his son at bedside, who speaks French. Pain: Complains of pain in abdomen. GI: Reports upper abdominal pain, diarrhea, vomiting. Historical: - Allergies: 05:53 PENICILLINS; adrián - PSHx: 05:53 hernia; adrián - Immunization history:: Client reports receiving the 2nd dose of the Covid vaccine. - Social history:: Smoking status: Patient denies any tobacco usage or history of. Patient/guardian denies using alcohol. Screenin:59 Abuse screen: Denies threats or abuse. Denies injuries from another. Nutritional adrián screening: No deficits noted. Tuberculosis screening: No symptoms or risk factors identified. Fall Risk None identified. Assessment: 05:54 Reassessment: No changes from previously documented assessment. Pt is a 51 yo, that adrián ambulated to exam room #19 \T\0530, accompanied by his son. The pt is [place] speaking, but his son assist in communication, per the pt's preference. The pt c/o pain to his abdomen x 1 week and N/V/D for 1 day. 06:00 GI: Bowel sounds present X 4 quads. adrián 06:00 GI: Abdomen is tender to palpation in abdomen diffusely. adrián 06:48 Reassessment: The pt is in NAD. Awaiting further orders. adrián Vital Signs: 05:50 BP 124 / 76; Pulse 57; Resp 18; Temp 98.2; Pulse Ox 100% on R/A; adrián 05:56 BP 124 / 81; Pulse 62; Resp 18; Temp 98.2; Pulse Ox 100% on R/A; adrián 07:54 BP 121 / 64; Pulse 62; Resp 16; Pulse Ox 94% on R/A; adrián ED Course: 05:08 Patient arrived in ED. kz 05:50 Fiorella Fabian, ROSA is Primary Nurse. adrián 05:50 Carlo Stevens MD is Attending Physician. kdr 05:52 Triage completed. adrián 05:59 Bed in low position. Call light in reach. Side rails up X 1. Adult w/ patient. adrián 05:59 Arm band placed on left wrist. adrián 05:59 No provider procedures requiring assistance completed. adrián 06:12 CBC with Diff Sent. adrián 06:12 CMP Sent. adrián 06:12 Lipase Sent. adrián 08:05 Christopher Burris PA is PHCP. jmm 08:26 US Abdomen Limited In Process Unspecified. EDMS 08:35 CT Abd/Pelvis - IV Contrast Only In Process Unspecified. EDMS 10:41 yTrell Liriano MD is Referral Physician. jmm 10:41 Jose Ware MD is Referral Physician. jmm 11:22 IV discontinued, intact, Pressure dressing applied. aguilar Administered Medications: 08:08 Drug: morphine 4 mg Route: IVP; Site: left antecubital; aguilar 08:09 Follow up: Response: No adverse reaction aguilar 08:09 CANCELLED (Duplicate Order): Ondansetron 4 mg PO once aguilar 08:09 Drug: Zofran (Ondansetron) 4 mg Route: IVP; Site: right antecubital; aguilar 08:09 Follow up: Response: No adverse reaction aguilar 09:34 Drug: Ketorolac 30 mg Route: IVP; Site: right antecubital; aguilar 09:35 Follow up: Response: No adverse reaction aguilar 09:35 Drug: Bentyl (dicyclomine) 20 mg Route: PO; aguilar 09:35 Follow up: Response: No adverse reaction aguilar Medication: 06:00 VIS not applicable for this client. adrián Outcome: 06:00 Condition: stable adrián 10:39 Discharge ordered by . radha 11:22 Discharged to home with family. aguilar 11:22 Condition: good 11:22 Discharge instructions given to patient, family, Prescriptions given X 4. 11:22 Patient left the ED. aguilar Signatures: Dispatcher [employer] EDMS Carlo Stevens MD MD kdr Mickail, Joel, PA PA jmm O'Farrell, Brenda RN Shilpa Lombardi RN RN ha Zapata, Kelly kz Corrections: (The following items were deleted from the chart) 08:09 08:08 Ondansetron 4 mg PO aguilar aguilar
[2022-04-24 11:34] VITALS: TEMP 98.2
[2022-04-24 11:38] VITALS: BP 121/64; O2SAT 94
== END 2022-04-24 11:22 | disposition home or self-care (01) ==
LOC: ER 05:06
DX: K80.80 Other cholelithiasis without obstruction (principal); R11.10 Vomiting, unspecified; R19.7 Diarrhea, unspecified; Z88.0 Allergy status to penicillin
CPT/HCPCS: 85025; 36415; 83690; 80053; 74177; 76705; 99284; Q9967; J2405